=== PATIENT | female | born 1945 | race Caucasian/White ===

== ENCOUNTER → 2021-07-16 10:04 | Outpatient (BNVA) | payer MEDICARE, SELFPAY | PROVIDERS: PCP Nurse Practitioner Family; Visit Provider Psychiatry & Neurology Neurology | DX: R42 Dizziness and giddiness (principal); M54.2 Cervicalgia | CPT/HCPCS: 99212 ==

== ENCOUNTER → 2022-07-15 11:28 | Outpatient (BNVA) | payer BC, SELFPAY | PROVIDERS: PCP Nurse Practitioner Family; Visit Provider Nurse Practitioner Family ==

== ENCOUNTER 2023-07-17 11:02 | Outpatient (AMB) | payer BC, SELFPAY ==
--- NOTE | 2023-07-17 11:10 | MHC.OFFVIS ---
Vital Signs 07/17/23 11:13 Height 5 ft 8 in Weight 144 lb BMI 21.9 BP 116/78 Blood Pressure Location Rt brachial Position Sitting Intake Visit Reasons: 1yr follow up dizziness-LVM Intake Note: Patient presents for 1 year follow up. Patient has not seen any improvement in her dizzy spells Allergies Opioids - Morphine Analogues Allergy (Mild, Verified 07/17/23 11:16) Nausea and Vomiting Medication List - Last Reconciled 07/17/23 by DANITZA Majano amitriptyline 25 mg PO BEDTIME cholecalciferol (vitamin D3) 25 mcg PO DAILY levothyroxine 25 mcg PO DAILY magnesium 300 mg PO DAILY mecobalamin (vitamin B12) mcg PO multivitamin 1 tab PO DAILY polyethylene glycol 3350 (Miralax) 8.5 grams PO DAILY HPI Comments Details: 78-yr-old female presents for f/u visit. Pt denies any significant interval medical changes. Pt reports she has been having some episodes of a nerve-like discomfort that moves up and fans up from the side of neck through the head- occurs w/ cervical flexion. She has been doing cervical and upper body stretches and exercises on her own and w/ her personal lines account manager. Making sure she reads and uses the computer while maintaining neck in neutral position is helpful. Denies neck pain that shoots into her arms or back. She denies interval vertigo attacks- other than some mild vertigo during a mild cold in the fall. No diplopia. She has to be mindful of her balance. She is walking regularly- when she is taking longer walks uses walking sticks. She can still do a Tandem walk- does have to pay attention. Denies falls- can be off-balance more so if moves quickly w/o thinking about it. She is having more difficulties w/ nighttime driving- starting to see halos around lights objects, even the ibrahim. She has the start of cataracts- not a surgical candidate yet. [facility] Medical History Allergy Cervicalgia Depression Diverticulitis Dizziness Endometrial cancer Hyperlipidemia Hypotension Hypothyroidism Osteoporosis Tinnitus Vertigo Surgical History History of tonsillectomy H/O bladder repair surgery History of hysterectomy Family History Father HTN (hypertension) Stroke Mother Osteoporosis Dementia Low blood pressure High blood cholesterol Daughter Depressed Social History Alcohol intake: current Alcohol intake frequency: holidays/special occasions only Patient Tobacco Use Status: Former Tobacco user Review of Systems Const All systems reviewed & are unremarkable except as noted in HPI and below Physical Exam Vital Signs: Last Vital Signs BP 116/78 07/17/23 11:13 BMI result Body Mass Index 21.9 Const General: cooperative and no acute distress Orientation/consciousness: patient oriented x3 HEENT Head: Yes normocephalic Resp Effort & Inspection: normal respiratory effort and able to speak in complete sentences Neuro Other: No palpable head tenderness. Mild forward head posture. Bilateral posterior cervical tightness and limited cervical ROM. General: patient oriented x3, gait normal and CN's II-XI intact bilaterally Cognition (Neuro): normal cognition Motor exam (neuro): 5/5 motor strength present throughout Deep tendon reflexes (DTR's): Right triceps reflex intensity grade: 2+, Left triceps reflex intensity grade: 2+, Rt Biceps (C5, C6): 2+, Left biceps reflex intensity grade: 2+, Right brachioradialis reflex intensity grade: 2+, Left brachioradialis reflex intensity grade: 2+, Right patellar reflex intensity grade: 1+ and Left patellar reflex intensity grade: 1+ Psych Appearance: grossly normal Mental Status: mental status grossly normal Speech and movement: Normal speech and movement present Affect: normal affect Attitude: cooperative Thought process: Normal thought process present Thought content: Normal thought content present Assessment & Plan Assessment & Plan (1) Cervicalgia: Code(s): M54.2 - Cervicalgia Category: Medical (2) Dizziness: Comment: ? vestibular migraine Code(s): R42 - Dizziness and giddiness Category: Medical (3) History of migraine: Code(s): Z86.69 - Personal history of other diseases of the nervous system and sense organs Category: Medical Plan Continue Amitriptyline 25mg qhs. Continue exercise. Consider alternate sunglasses- that do not fully block light- may be helpful. Futuire considerations- trial of Gabapentin - and consider weaning off of Amitriptyline. f/u in 1 yr or sooner prn. Orders: Orders XR cervical spine w flex/ext Today M54.2 - Cervicalgia Coding Level of Care Code Est Pt Level 4 (99549) Diagnoses Cervicalgia M54.2 Dizziness R42 History of migraine Z86.69
[2023-07-17 11:13] VITALS: BP 116/78; BMI 21.9
== END 2023-07-17 12:05 | disposition home or self-care (01) ==
PROVIDERS: PCP Registered Nurse; Visit Provider Nurse Practitioner Family
DX: M54.2 Cervicalgia (principal); R42 Dizziness and giddiness; Z86.69 Personal history of other diseases of the nervous system and sense organs
CPT/HCPCS: 99214

== ENCOUNTER → 2023-07-17 11:02 | Outpatient (BNVA) | payer BC, SELFPAY | PROVIDERS: Visit Provider Nurse Practitioner Family ==

== ENCOUNTER 2024-07-16 11:05 | Outpatient (AMB) | payer BC, SELFPAY ==
[2024-07-16 11:08] VITALS: BP 100/70; PULSE 89; O2SAT 97; BMI 22.2
--- NOTE | 2024-07-16 11:08 | MHC.OFFVIS ---
Vital Signs 07/16/24 11:08 Height 5 ft 8 in Weight 146 lb BMI 22.2 BP 100/70 Blood Pressure Location Lt brachial Position Sitting Pulse 89 Pulse Source Pulse Oximeter Pulse Oximetry (%) 97 Oxygen Delivery Method Room Air Intake Visit Reasons: 1 yr F/U Intake Note: Patient presents 1 year follow up for dizziness and migraines. Plant Quality Manager Required: No Accompanied by: Self / Same As Patient Allergies Opioids - Morphine Analogues Allergy (Mild, Verified 07/16/24 11:10) Nausea and Vomiting Medication List - Last Reconciled 07/16/24 by DANITZA Majano amitriptyline 25 mg PO BEDTIME cholecalciferol (vitamin D3) 25 mcg PO DAILY levothyroxine 25 mcg PO DAILY magnesium 300 mg PO DAILY mecobalamin (vitamin B12) mcg PO multivitamin 1 tab PO DAILY polyethylene glycol 3350 (Miralax) 8.5 grams PO DAILY HPI Comments Details: 78-yr-old female presents for f/u visit. Pt denies any significant interval medical changes. She would like to discuss weaning off of amitriptyline, she has been on it for a number of years now, and is curious if it is having any effect or not. Pt reports she is not feeling as lightheaded. She has been noticing decreased awareness of where her feet are. She had a mlld fall- caught her left foot on the edge of the sidewalk and pitched forward- was able to roll forward- no injuries. She had recent f/u eye exam, as pt was noting she could see better w/o her glasses then w/ her glasses- and needs a new glasses prescription- waiting to receive new prescription. She also had a right lower back pain moving into her RLE- has been working- IT band and piriformis dysfunction- she feels this is r/t h/o childhood scoliosis and subsequent limb length discrepancy. She did PT, which was helpful. She is working w/ a certified personal trainer, Stephanie Barber in [place] weekly and continues to do the PT exercises and her strength trainings. Endorses right foot tingling x's 5-6 yrs, however she can feel the ground when walking. Was previously evaluated by ortho- and this was thought to be d/t h/o recurrent rolling of her ankles. XR c-spine showed diffuse degenerative changes, more so at C5-C6 and C6-C7. Pt reports she has occassion bouts of a nerve-like discomfort that moves up and fans up from the side of neck through the head- occurs w/ cervical flexion. Making sure she reads and uses the computer while maintaining neck in neutral position is helpful. Denies neck pain that shoots into her arms or back. [facility] Medical History Allergy Cervicalgia Depression Diverticulitis Dizziness Endometrial cancer Hyperlipidemia Hypotension Hypothyroidism Osteoporosis Tinnitus Vertigo Surgical History History of tonsillectomy H/O bladder repair surgery History of hysterectomy Family History Father HTN (hypertension) Stroke Mother Osteoporosis Dementia Low blood pressure High blood cholesterol Daughter Depressed Social History Alcohol intake: current Alcohol intake frequency: holidays/special occasions only Patient Tobacco Use Status: Former Tobacco user Physical Exam Vital Signs: Last Vital Signs Pulse 89 07/16/24 11:08 BP 100/70 07/16/24 11:08 Pulse Ox 97 07/16/24 11:08 Oxygen Delivery Method Room Air 07/16/24 11:08 BMI result Body Mass Index 22.2 Const General: cooperative and no acute distress Orientation/consciousness: patient oriented x3 HEENT Head: Yes normocephalic Resp Effort & Inspection: normal respiratory effort and able to speak in complete sentences Neuro Other: Bilateral posterior cervical tightness and limited cervical ROM. General: patient oriented x3, gait normal and CN's II-XI intact bilaterally Cognition (Neuro): normal cognition Motor exam (neuro): 5/5 motor strength present throughout Coordination: [id number] test normal, tandem gait normal and Romberg test negative Psych Appearance: grossly normal Mental Status: mental status grossly normal Speech and movement: Normal speech and movement present Affect: normal affect Attitude: cooperative Thought process: Normal thought process present Thought content: Normal thought content present Assessment & Plan Assessment & Plan (1) Dizziness: Comment: ? vestibular migraine Code(s): R42 - Dizziness and giddiness Category: Medical (2) Cervicalgia: Code(s): M54.2 - Cervicalgia Category: Medical (3) History of migraine: Code(s): Z86.69 - Personal history of other diseases of the nervous system and sense organs Category: Medical Plan Reviewed C-spine x-ray report, showing diffuse arthritic changes most predominant at C5-C6 and C6-C7. Discontinue Amitriptyline 25mg qhs. Patient may try to wean off of amitriptyline- 20 mg nightly times 3-4 weeks, then decrease to dose by 5 mg every 3-4 weeks, until completely tapered off. Patient advised to monitor for increased signs of headache or dizziness symptoms. Continue exercise. Patient may benefit from trialing a massage therapy done. f/u in 1 yr or sooner prn. Medications: New amitriptyline 20 mg (2 x 10 mg) PO BEDTIME 30 days 60 tabs 2RF Discontinued amitriptyline Discontinued Reason: Doctor's Order 25 mg PO BEDTIME 90 tabs 2RF Coding Level of Care Code Est Pt Level 4 (59542) Diagnoses Dizziness R42 Cervicalgia M54.2 History of migraine Z86.69
--- OUTSIDE RECORDS SUMMARY | 2024-07-16 11:34 | XMS_ITS | Data Portability ---
Author Organization [facility], [employer] Address [address] [place] [id number] Care Team Providers Care Product Lister Name Role Phone JONNYRICHARDJOSEJONNIE Referring Provider Assessment Encounter Date Assessment Date Assessment LastModified by Organization Details LastModified Time 06/20/2020 06/20/2020 IMPRESSION orthostasis, with onset of episodes in her 30s of lightheadedness/f uzziness when erect, minutes up to 2 hours in duration; and November 2019 onset of subsequently continual but fluctuating intensity lightheadedness/f uzziness when erect. The neurological differential continues to include peripheral and central autonomic dysregulation. Peripheral neuropathy may be accompanied by an autonomic component. Much more rarely, multisystems atrophy, a parkinsonian syndrome, may start with dizziness related to central dysautonomia. She mentions that symptoms started in her 30s episodically around the same time that migraine started. Perhaps this is a very atypical migraine aura variant. The continuous symptomatology since November 2020, however, would be even more highly atypical. Cardiology wonders about a cerebellar issue. Cerebellar issues do not cause lightheadedness, they cause vertigo. Her symptoms are not vertiginous. ENT wonders about a brain MRI. Brain abnormalities perceivable by brain MRI very rarely relate to the lightheaded dizziness that the patient mentions. When they do, the lightheaded dizziness is typically episodic and related to abnormality at the craniocervical junction or within a ventricle. If we moved toward brain MRI, I would be hard put to say what I was looking for given her history. If we found something abnormal, I would be hard put to connect that abnormality with her continuous lightheaded dizziness. More likely but also still rare is an initial presentation of multisystems atrophy as discussed above. I discussed this with the patient. If it is negative, this is excellent data saying that she does not have multisystems atrophy. If it is positive, it has very poor positive predictive value. It might be positive because she is destined to have Parkinson? s disease symptoms starting in 10 years or more as Parkinson? s disease is much more common than multisystems atrophy and the test is so sensitive so that it can find abnormality several years before there are clinical signs of a parkinsonian syndrome of dopaminergic depletion. She is unsure if she wants to proceed in this direction. We discussed this and a summary of this discussion is below for the patient. arianne Not available 06/20/2020 13:15:55 Plan of Treatment Reminders Order Date Submit Date Provider Last Modified By Organization Details Last Modified Time Details Appointments None record ed. Lab None record ed. Referral None record ed. Procedures None record ed. Surgeries None record ed. Imaging None record ed. Medication Orders None record ed. Patient TargetsNo targets recorded. Patient InstructionsNo instructions recorded. Reason for Referral None Reported. Medical Equipment None Reported. Vitals None Recorded Social History None recorded. Functional Status None recorded. Mental Status None recorded. Family History Nothing Reported. Medical History No medical history recorded. Gynecological HistoryNo gynecological history recorded. 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 a utonomic? nerves not managing the communicat ion between the brain, the heart and the blood vessels. This is called and autonomic neuropathy . There is no specific treatment. Symptomati c treatment can be done. This would raise the blood pressure. For person in your age range, there is increased danger of causing high blood pressure and problems because of that. I would want primary care or cardiology to be in charge of such medication s for you. More unusually, a problem with the heart itself can cause this. Cardiology has made an assessment and has told her that this is not the case. They have not felt that the part of your dizziness that worsens when you? r e standing is severe enough to warrant a medication . They have given you some conservati ve measures to take to minimize dizziness that is worse with standing up and I agree with this direction. Multisyste ms atrophy is a very rare disease that hypothetic ally could start with the type of dizziness you have. Multisyste ms atrophy is in the parkinsoni sm family, but is not Parkinson? s disease, may start with your type of lightheade dness. This usually starts in a person? s 50s or 60s. You are 74 so that would be unusual. That is on top of the fact that this is a very rare disease. You do not have any of the other signs or symptoms to make me suspect this or strongly. We could check for this with a very special type of imaging called DATSCAN. As cardiology consultati on and ENT consultati on provide no further directions for inquiry, DATSCAN would be the next direction to go. As we have discussed, if it is negative then you definitive ly don? t have multisyste ms atrophy. If it is positive, it does not have good diagnostic value. The test is so sensitive that a positive result could be indicative of a disease that you would not get for several years up to over a decade. The test also relates to a set of diseases in the parkinsoni sm family so if it is positive you could have any one of those set. The positive test would therefore plausibly related to Parkinson disease which is ~15 times more common than multisyste ms atrophy. You are going to think about this. Your symptoms started around the same time as migraine. If you just had episodic lightheade dness with standing we could consider this a very unusual variant of an aura of a migraine. However with the continuous symptoms you are having now, I think this is highly unlikely. However, at a follow-up we could consider a migraine preventati ve with this possibilit y as this would not be dangerous. Migrainous vertigo 06446 [id number] H81.8X9 Health Concerns Section Related Observation LastModified by Organization Detai ls LastModified Time None Recorded Concern Status LastModified by Organization Details LastModified Time None Recorded Advance Directives Directive None Recorded Payers Encounter Date Sequence Insurance Name Policy Number Policy Allen Covered Member ID Allen Member ID Guarantor Name 06/20/2020 2 [place] [id number] Karen Landaverde [id number] Karen Landaverde 06/20/2020 1 [place] [employer] Karen Landaverde [id number] Karen Landaverde Notes Date Note Type Note Provider Name and Address Organization Details Recorded Time 06/20/2020 text/html Follow up of lightheadedness and fuzziness. Past history per chart includes osteoporosis and intermittent depression as well as seasonal allergies. She is unaccompanied. Since March 16, 2020 she has been to consultation with cardiology April 13, 2020. We reviewed over their consultation note together. Cardiology states that she ? c ertainly has orthostatic hypotension by measurement.? They go on to say, however, that the dizziness and associated difficulty in walking a straight line are associated with simultaneous worsening of her chronic tinnitus. The patient says today that she indeed does have daily continuous tinnitus. But she does not remember noticing any association of worsening of the tinnitus with any fluctuation of her dizziness or her ability to walk a straight line. She had follow-up with ENT June 13, 2020. They mentioned that the tinnitus worsened in November 2019 around the same time that the dizziness worsened. The patient agrees with this. She had room spinning vertigo before November 2019 per their history and the patient agrees. Vestibular therapy with Katie maneuvers helped. They note that [place] testing at the June 14, 2019 consultation was negative. More generally, she continues to experience the dizziness on a daily basis, continuous since ~November 2019. The dizziness fluctuates during the day but overall it feels as if it has worsened together with worsening imbalance. She has not fallen. The dizziness continues to be lightheaded in nature without a feeling of spinning, without a feeling of sudden movement backwards or forwards or upper down like in an elevator or a car, without any feeling of being on a rocking boat. Presenting symptomatology is reviewed from March 16, 2020: In her 30s, she began to have episodes of lightheadedness and fuzziness with standing and walking. This was around the same time that she began having migraines. This sensation feels like it? s hard to sense where she is in relationship to the ground. During an episode, the sensation goes away if she sits or lies down. An episode may last minutes up to 2 hours. During a longer episode, the sensation comes and goes in strict association with whether she is walking/standing or sitting/lying respectively. In recent times, episodes have happened 1-2 times per month. Greater than 50% of episodes occur when she first stands up after waking up and then go away in a few minutes after she has her coffee. In November 2019, she had onset of lightheadedness/fuzzi ness which felt no different from any of her other episodes. However, it has never gone away. Symptoms fluctuate so that some days she barely notices it while other days it is fairly intense. It has not made her fall. There was no injury, significant change in her emotional state or medication change around the time when this unending experience of lightheadedness/fuzzi ness began in November. Symptoms are such that she is reluctant to change a light bulb and yoga exercises much more difficult. She has always since childhood had balance issues with walking. She has maintained her physical well-being with exercise to minimize any risk from this. Her last fall was in ~2015 slipping on the ice. She has noticed no recent worsening in her walking or balance. She has no restless legs before going to sleep. She sleeps alone. She does not fall out of bed. Bladder dyscontrol or 2 a bladder sling operation in 1995 and she has had no bladder issues since then. She developed right foot tingling several years ago that was diagnosed as related to tendon injury by podiatry context 3 ankle sprains. She has chronic constipation since childhood and that has not changed. She has no hallucination. Leonardo Lomeli MD [address] [place] [address] [place], [phone], [facility] 06/20/2020 13:19:52 OBGyn Episode No OBEpisode recorded.
== END 2024-07-16 12:11 | disposition home or self-care (01) ==
LOC: HO.HSMS 11:06
PROVIDERS: PCP Registered Nurse; Visit Provider Nurse Practitioner Family
DX: R42 Dizziness and giddiness (principal); M54.2 Cervicalgia; Z86.69 Personal history of other diseases of the nervous system and sense organs
CPT/HCPCS: 99214

== ENCOUNTER → 2024-07-16 11:05 | Outpatient (BNVA) | payer BC, SELFPAY | PROVIDERS: PCP Registered Nurse; Visit Provider Nurse Practitioner Family | DX: Z13.89 Encounter for screening for other disorder (principal) ==